=== PATIENT | male | born 1995 | race Caucasian/White ===

== ENCOUNTER 2020-11-13 16:50 | Emergency (ER) | payer OTHER ==
[~2020-11-13] VITALS: Ht 177.8 cm; Wt 92.5 kg
[2020-11-13] MEDS ORDERED: DOXYCYCLINE HYCLATE 100MG TABLET PO ONE (18:25)
[2020-11-13] MEDS ORDERED: DOXY1CAP62 PO (18:27)
[2020-11-13 18:43] VITALS: BP 115/63
== END 2020-11-13 18:44 | disposition home or self-care (01) ==
LOC: M ED 16:50
DX: S61.412A Laceration without foreign body of left hand, initial encounter (principal); L08.9 Local infection of the skin and subcutaneous tissue, unspecified; W26.0XXA Contact with knife, initial encounter; Y92.138 Other place on military base as the place of occurrence of the external cause; Y93.89 Activity, other specified; Y99.1 Military activity; F17.200 Nicotine dependence, unspecified, uncomplicated